=== PATIENT | male | born 1970 | race Caucasian/White ===

== ENCOUNTER 2016-12-10 20:03 | Emergency (ER) | payer OTHER ==
[~2016-12-10] VITALS: Ht 182.9 cm; Wt 86.2 kg
[2016-12-10] MEDS ORDERED: SERT50TA PO (20:18)
--- NOTE | 2016-12-10 20:18 | NUR ---
Patient, ambulatory via wheelchair, walked into ER c/o back pain. Patient states he sneezed and immediately after could not move without pain. To room 3A.
[2016-12-10] MEDS ORDERED: OXYCODONE/APAP 5-325 MG TABLET PO ONE (20:45)
[2016-12-10] MEDS ORDERED: DIAZEPAM 2 MG TABLET PO ONE (20:45)
[2016-12-10] MEDS ORDERED: DIAZEPAM 5 MG TABLET ONE (20:54)
[2016-12-10] MEDS ORDERED: OXYCODONE/APAP 5-325 MG TABLET ONE (20:55)
--- NOTE | 2016-12-10 20:58 | NUR ---
Patient discharged to home in stable conditon. Written and verbal after care instructions given. Patient verbalizes understanding of instructions.
== END 2016-12-10 21:10 | disposition home or self-care (01) ==
LOC: ER 20:03
DX: M54.9 Dorsalgia, unspecified (principal); F32.9 Major depressive disorder, single episode, unspecified; F12.10 Cannabis abuse, uncomplicated; Z88.1 Allergy status to other antibiotic agents
CPT/HCPCS: 99283; A4663